=== PATIENT | male | born 1985 | race Caucasian/White ===

== ENCOUNTER 2017-03-17 19:33 | Emergency (ER) | payer SELFPAY ==
[~2017-03-17] VITALS: Ht 175.3 cm; Wt 83.3 kg
[~2017-03-17 19:33] MED LIST: HYDR-3533 PO; METH750T2 PO
[2017-03-17 19:41] VITALS: BP 118/58; PULSE 75; RESP 18; TEMP 97.9; O2SAT 98
[2017-03-17] MEDS ORDERED: CIPR500T2 PO (20:07)
[2017-03-17] MEDS ORDERED: CORTI10A LEFT EAR (20:07)
--- NOTE | 2017-03-17 20:07 | PD ---
HPI Chief Complaint: ENT Complaint Time Seen by Provider: 19:47 Travel History International Travel<30 days: No Contact w/Intl Traveler<30days: No Traveled to known affect area: No History of Present Illness HPI Is a 31-year-old male presents emergency department left ear swelling and pain for the past few days. Patient denies a history of swimming but states he's had swimmer's ear in the past from scuba diving. Denies any other upper respiratory symptoms denies any cough congestion abdominal pain nausea vomiting diarrhea and sore throat. States symptoms are gradually worsening. PFSH Past Medical History ADHD: Yes Bipolar Disorder: Yes (NO MEDICATIONS) Anxiety: Yes Depression: Yes Diminished Hearing: No Gastrointestinal Disorders: Yes (IBS) Immunizations Current: Yes Past Surgical History Abdominal Surgery: Yes (UMBICAL HERNIA REPAIR, "STOMACH BLOCKAGE WHEN I WAS A BABY") Body Medical Devices: bipolar Tonsillectomy: Yes Tympanostomy Tube: Yes (BILAT, CHILD) Other Surgery: Yes (HERNIA 2009) Social History Alcohol Use: No Tobacco Use: No Substance Use: No Allergies-Medications (Allergen,Severity, Reaction): Coded Allergies: Penicillin (Verified Allergy, Severe, Hives, 03/17/17) Phenergan (Verified Adverse Reaction, Intermediate, 'MAKES ME VIOLENT AND ANGRY', 03/17/17) pt states he becomes violent Reported Meds & Prescriptions Reported Meds & Active Scripts Active Ciprofloxacin (Ciprofloxacin HCl) 500 Mg Tab 500 Mg PO BID 7 Days Tsylxxik-Jylwlcugk-OD Otic Drops (Neomycin/Polymyxin/Hydrocortisone) 1 % Soln 4 Drop LEFT EAR QID 7 Days Review of Systems Except as stated in HPI: all other systems reviewed are Neg Physical Exam Narrative GENERAL: Well-nourished, well-developed patient. SKIN: Focused skin assessment warm/dry. HEAD: Normocephalic. EYES: No scleral icterus. No injection or drainage. ENT: Patient has some swelling at the tragus of the left ear, there is some minimal canal swelling and the outermost canal. Cerumen impaction was easily removed, TM is normal, there is some mild erythema of the left ear canal. Right TM right pinna right canal are normal. Oropharynx clear and moist. No mastoid tenderness bilaterally. NECK: Supple, trachea midline. No JVD or lymphadenopathy. CARDIOVASCULAR: Regular rate and rhythm without murmurs, gallops, or rubs. RESPIRATORY: Breath sounds equal bilaterally. No accessory muscle use. GASTROINTESTINAL: Abdomen soft, non-tender, nondistended. MUSCULOSKELETAL: No cyanosis, or edema. BACK: Nontender without obvious deformity. No CVA tenderness. Data Data Last Documented VS Vital Signs Date Time Temp Pulse Resp B/P Pulse Ox O2 Delivery O2 Flow Rate FiO2 03/17/17 19:41 97.9 75 18 118/58 98 MDM Medical Decision Making Medical Screen Exam Complete: Yes Emergency Medical Condition: Yes Differential Diagnosis Otitis externa, cellulitis, otitis media. Narrative Course Patient was roomed emergency department, signs symptoms concerning for a moderate otitis externa. Will be placed on by mouth Cipro as well as polymyxin otic. Discussed with the patient to follow up with his ear nose and throat doctor or primary care physician and discussed return to ED criteria. He stable for discharge at this time. Diagnosis Primary Impression: Otitis externa Qualified Code: H60.502 - Acute otitis externa of left ear, unspecified type Med/Other Pt SpecificInfo: Prescription(s) given Scripts Ciprofloxacin 500 Mg [id number] Mg PO BID 7 Days Ref 0 Prov:Paulino Ayala MD 03/17/17 Muvkhfpk-Sjknjrita-NK Otic Drops 1 % Soln4 Drop LEFT EAR QID 7 Days Ref 0 Prov:Paulino Ayala MD 03/17/17 Disposition: 01 DISCHARGE HOME Condition: Stable Paulino Ayala MD Mar 17, 2017 20:07
== END 2017-03-17 20:20 | disposition home or self-care (01) ==
LOC: PHEFT 19:33
DX: H60.502 Unspecified acute noninfective otitis externa, left ear (principal); H61.22 Impacted cerumen, left ear
CPT/HCPCS: 99284

== ENCOUNTER 2017-04-18 00:20 | Emergency (ER) | payer SELFPAY ==
[~2017-04-18] VITALS: Ht 175.3 cm; Wt 83.9 kg
[~2017-04-18 00:20] MED LIST changes: +CIPR500T2 PO; +CORTI10A LEFT EAR; -HYDR-3533 PO; -METH750T2 PO
[2017-04-18 00:25] VITALS: BP 127/73; PULSE 84; RESP 18; TEMP 98.1; O2SAT 98
[2017-04-18 00:30] VITALS: BP_SYST 119; BP_SYST 136; BP_DIAS 76; BP_DIAS 81; PULSE 84; RESP 18; TEMP 97.6; O2SAT 98
[2017-04-18 00:57] LABS: BASOPHIL % 0.5 % (0.0-2.0); EOSINOPHIL # 0.1 TH/MM3 (0-0.4); EOSINOPHIL % 1.2 % (0.0-4.0); HEMATOCRIT 44.2 % (39.0-51.0); HEMO FLAGS DIFF FINAL; LYMPH % 36.1 % (9.0-44.0); LYMPHOCYTE # 2.7 TH/MM3 (1.0-4.8); MEAN CELL VOLUME 84.7 FL (80.0-100.0); MEAN CORPUSCULAR HEMOGLOBIN 28.9 PG (27.0-34.0); MEAN CORPUSCULAR HGB CONC 34.2 % (32.0-36.0); MONO % 8.2 % (0.0-8.0); PLATELET COUNT 259 TH/MM3 (150-450); RED BLOOD COUNT 5.22 MIL/MM3 (4.50-5.90); RED CELL DISTRIBUTION WIDTH 11.4 % (11.6-17.2); WHITE BLOOD COUNT 7.4 TH/MM3 (4.0-11.0)
[2017-04-18 01:04] LABS: CHLORIDE 106 MEQ/L (98-107); POTASSIUM 3.6 MEQ/L (3.5-5.1); SODIUM (NA) 142 MEQ/L (136-145)
[2017-04-18 01:07] LABS: ANION GAP 7 MEQ/L (5-15); BICARBONATE 29.2 MEQ/L (21.0-32.0); BLOOD UREA NITROGEN 18 MG/DL (7-18)
[2017-04-18 01:10] LABS: GLOMERULAR FILTRATION RATE 79 ML/MIN (>89)
[2017-04-18 01:14] LABS: CREATINE KINASE 65 U/L (39-308)
--- NOTE | 2017-04-18 01:18 | RADRPT ---
EXAM DATE/TIME: 04/18/2017 00:55 [facility] COMPARISON: No previous studies available for comparison. INDICATIONS : Left lower chest pain for 24 hours MEDICAL HISTORY : None. SURGICAL HISTORY : None. ENCOUNTER: Initial ACUITY: 1 day PAIN SCORE: 8/10 LOCATION: Left lower chest FINDINGS: The cardiac silhouette is normal in transverse diameter. There is subsegmental atelectasis in the adarsh th bases. There is no evidence of pneumonia. No pleural effusions are identified. CONCLUSION: 1. Subsegmental atelectasis both bases. Maurilio Max MD on April 18, 2017 at 1:17 Board Certified Radiologist. This report was verified electronically.
[2017-04-18] MEDS ORDERED: IBUP-232 PO (01:37)
--- NOTE | 2017-04-18 01:38 | PD ---
HPI Chief Complaint: Chest Pain Time Seen by Provider: 01:12 Travel History International Travel<30 days: No Contact w/Intl Traveler<30days: No Traveled to known affect area: No History of Present Illness HPI The patient is a 31-year-old male with no known history of heart disease who complains of chest pain since 6 AM yesterday. The chest pain is sharp, pleuritic and not associated with nausea, diaphoresis, shortness of breath or radiation of pain. The patient does not smoke, have hypertension, elevated cholesterol or diabetes. His family history is that of his grandmother having heart disease in her 50s. He does not know much about his father's side of the family. He denies any direct trauma to the chest. PFSH Past Medical History ADHD: Yes Bipolar Disorder: Yes (NO MEDICATIONS) Anxiety: Yes Depression: Yes Diminished Hearing: No Gastrointestinal Disorders: Yes (IBS) Immunizations Current: Yes Tetanus Vaccination: Unknown Influenza Vaccination: No Past Surgical History Abdominal Surgery: Yes (UMBICAL HERNIA REPAIR, "STOMACH BLOCKAGE WHEN I WAS A BABY") Body Medical Devices: bipolar Tonsillectomy: Yes (T&A) Tympanostomy Tube: Yes (BILAT, CHILD) Other Surgery: Yes (UMBILICAL HERNIA 2010, PYLORIC STENOSIS) Social History Alcohol Use: Yes (Rarely) Tobacco Use: No Substance Use: No Allergies-Medications (Allergen,Severity, Reaction): Coded Allergies: Penicillin (Verified Allergy, Severe, Hives, 04/18/17) Phenergan (Verified Adverse Reaction, Intermediate, 'MAKES ME VIOLENT AND ANGRY', 04/18/17) pt states he becomes violent Reported Meds & Prescriptions Reported Meds & Active Scripts Active No Active Prescriptions or Reported Medications Review of Systems Except as stated in HPI: all other systems reviewed are Neg Physical Exam Narrative GENERAL: The patient is alert, oriented 3 in moderate apparent distress with his chest pain. He is not uncomfortable at all and has no chest pain if he does not move. His vital signs are normal. SKIN: Focused skin assessment warm/dry. No skin rash is seen. HEAD: Atraumatic. Normocephalic. EYES: Pupils equal and round. No scleral icterus. No injection or drainage. ENT: No nasal bleeding or discharge. Mucous membranes pink and moist. NECK: Trachea midline. No JVD. CARDIOVASCULAR: Regular rate and rhythm. No murmur appreciated. RESPIRATORY: No accessory muscle use. Clear to auscultation. Breath sounds equal bilaterally. I can completely reproduce the patient's pain by pressing on the rib/chest wall where the patient perceives his pain. This is on the left anterior ribs. No associated crepitus, neither bony nor air is present and there is no flail. GASTROINTESTINAL: Abdomen soft, non-tender, nondistended. Hepatic and splenic margins not palpable. MUSCULOSKELETAL: No obvious deformities. No clubbing. No cyanosis. No edema. NEUROLOGICAL: Awake and alert. No obvious cranial nerve deficits. Motor grossly within normal limits. Normal speech. PSYCHIATRIC: Appropriate mood and affect; insight and judgment normal. Data Data Last Documented VS Vital Signs Date Time Temp Pulse Resp B/P Pulse Ox O2 Delivery O2 Flow Rate FiO2 04/18/17 00:30 97.6 84 18 119/76 98 136/81 Orders Electrocardiogram (04/18/17 00:45) Complete Blood Count With Diff (04/18/17 00:45) Basic Metabolic Panel (Bmp) (04/18/17 00:45) Ckmb (Isoenzyme) Profile (04/18/17 00:45) Troponin I (04/18/17 00:45) Iv Access Insert/Monitor (04/18/17 00:45) Ecg Monitoring (04/18/17 00:45) Oxygen Administration (04/18/17 00:45) Oximetry (04/18/17 00:45) Chest, Pa & Lat (04/18/17 00:45) Labs Laboratory Tests Test 04/18/17 00:50 White Blood Count 7.4 TH/MM3 Red Blood Count 5.22 MIL/MM3 Hemoglobin 15.1 GM/DL Hematocrit 44.2 % Mean Corpuscular Volume 84.7 FL Mean Corpuscular Hemoglobin 28.9 PG Mean Corpuscular Hemoglobin 34.2 % Concent Red Cell Distribution Width 11.4 % Platelet Count 259 TH/MM3 Mean Platelet Volume 6.8 FL Neutrophils (%) (Auto) 54.0 % Lymphocytes (%) (Auto) 36.1 % Monocytes (%) (Auto) 8.2 % Eosinophils (%) (Auto) 1.2 % Basophils (%) (Auto) 0.5 % Neutrophils # (Auto) 4.0 TH/MM3 Lymphocytes # (Auto) 2.7 TH/MM3 Monocytes # (Auto) 0.6 TH/MM3 Eosinophils # (Auto) 0.1 TH/MM3 Basophils # (Auto) 0.0 TH/MM3 CBC Comment DIFF FINAL Differential Comment Sodium Level 142 MEQ/L Potassium Level 3.6 MEQ/L Chloride Level 106 MEQ/L Carbon Dioxide Level 29.2 MEQ/L Anion Gap 7 MEQ/L Blood Urea Nitrogen 18 MG/DL Creatinine 1.10 MG/DL Estimat Glomerular Filtration 79 ML/MIN Rate Random Glucose 106 MG/DL Calcium Level 9.1 MG/DL Total Creatine Kinase 65 U/L Troponin I LESS THAN 0.02 NG/ML MDM Medical Decision Making Medical Screen Exam Complete: Yes Emergency Medical Condition: Yes Medical Record Reviewed: Yes Interpretation(s) The EKG shows no acute change. The chest x-ray shows subsegmental atelectasis on both bases. The troponin I is normal. Except for a GFR of 79, the basic metabolic profile is normal. Differential Diagnosis Acute coronary syndrome, chest wall pain, atypical chest pain, esophageal pain, gastrointestinal pain, pleuritic pain, pneumonia, pulmonary embolus Narrative Course The patient has chest wall pain. Plan: He will be given Motrin 600 mg 3 times daily. Diagnosis Primary Impression: Acute chest wall pain Med/Other Pt SpecificInfo: Prescription(s) given (mot) Scripts Ibuprofen 600 Mg [id number] Mg PO TID #44 TAB Ref 0 Prov:Kamaljit Roberto MD 04/18/17 Disposition: 01 DISCHARGE HOME Condition: Stable Kamaljit Roberto MD Apr 18, 2017 01:38
[2017-04-18 01:45] VITALS: BP 136/81
[2017-04-18] MEDS ORDERED: KETOROLAC TROMETHAMINE 60 MG/2 ML (IM) VIAL IVP ONE (01:45)
--- NOTE | 2017-04-18 08:46 | EKG ---
Date Performed: 04/18/2017 Time Performed: 00:30:00 PTAGE: 31 years EKG: Sinus rhythm NONSPECIFIC T-WAVE ABNORMALITY BORDERLINE ECG PREVIOUS TRACING : 11/18/2015 01.35 Compared to prior tracing no significant change DOCTOR: José Miguel Saldana Interpretating Date/Time 04/18/2017 08:44:30
== END 2017-04-18 02:04 | disposition home or self-care (01) ==
LOC: PHED 00:20
DX: R07.89 Other chest pain (principal)
CPT/HCPCS: 71020; 80048; 82550; 84484; 85025; 93005; 96374; 99285; J1885

== ENCOUNTER 2017-11-19 10:28 | Emergency (ER) | payer OTHER ==
[~2017-11-19] VITALS: Ht 175.3 cm; Wt 90.7 kg
[~2017-11-19 10:28] MED LIST changes: -CIPR500T2 PO; -CORTI10A LEFT EAR; +IBUP-232 PO
[2017-11-19 10:32] VITALS: BP 129/74; PULSE 119; RESP 16; TEMP 100.3; O2SAT 96
--- NOTE | 2017-11-19 10:48 | PD ---
HPI Chief Complaint: Cold / Flu Symptoms Time Seen by Provider: 10:35 Travel History International Travel<30 days: No Contact w/Intl Traveler<30days: No Traveled to known affect area: No History of Present Illness HPI Patient comes to the emergency department complaining of flulike symptoms that began approximately 48 hours ago. Patient complains of cough, congestion, and fevers. Patient reports using [id number] cold and flu medication seems to help. Patient reports that he was around his father who had similar. Patient is concerned as his fiance is . Denies any nausea, vomiting, diarrhea, abdominal pain, chest pain, shortness of breath, headache, neck pain, or sore throat. PFSH Past Medical History ADHD: Yes Bipolar Disorder: Yes (NO MEDICATIONS) Anxiety: Yes Depression: Yes Diminished Hearing: No Gastrointestinal Disorders: Yes (IBS) Immunizations Current: Yes Past Surgical History Abdominal Surgery: Yes (UMBICAL HERNIA REPAIR, "STOMACH BLOCKAGE WHEN I WAS A BABY") Body Medical Devices: bipolar Tonsillectomy: Yes (T&A) Tympanostomy Tube: Yes (BILAT, CHILD) Other Surgery: Yes (UMBILICAL HERNIA 2010, PYLORIC STENOSIS) Social History Alcohol Use: Yes (Rarely) Tobacco Use: No Substance Use: No Allergies-Medications (Allergen,Severity, Reaction): Coded Allergies: penicillin G (Unverified Allergy, Severe, Hives, 11/19/17) promethazine (Unverified Adverse Reaction, Intermediate, 'MAKES ME VIOLENT AND ANGRY', 11/19/17) pt states he becomes violent Reported Meds & Prescriptions Reported Meds & Active Scripts Active Zofran Odt (Ondansetron Odt) 4 Mg Tab 4 Mg SL Q6HR PRN Tamiflu (Oseltamivir Phosphate) 75 Mg Cap 75 Mg PO BID 5 Days Review of Systems Except as stated in HPI: all other systems reviewed are Neg Physical Exam Narrative GENERAL: Well-developed, overly nourished, in no acute distress, and non-ill appearing. SKIN: Focused skin assessment warm and dry. HEAD: Atraumatic. Normocephalic. EYES: Pupils equal and round. EOMI. No scleral icterus. No injection or drainage. ENT: No nasal bleeding or discharge. Mucous membranes pink and moist. Tympanic membranes pearly mei bilaterally. Posterior pharynx nonerythematous without exudate. Uvula is midline. No tenderness to facial sinuses to palpation. NECK: Trachea midline. No cervical lymphadenopathy. Supple. No nuclear rigidity. CARDIOVASCULAR: Regular rate and rhythm. No murmur appreciated. RESPIRATORY: No accessory muscle use. No respiratory distress. Clear to auscultation. Breath sounds equal bilaterally. MUSCULOSKELETAL: No obvious deformities. No clubbing. No cyanosis. No edema. Full range of motion. NEUROLOGICAL: Awake and alert. No obvious cranial nerve deficits. Motor grossly within normal limits. Normal speech. PSYCHIATRIC: Appropriate mood and affect; insight and judgment normal. Data Data Last Documented VS Vital Signs Date Time Temp Pulse Resp B/P (MAP) Pulse Ox O2 Delivery O2 Flow Rate FiO2 11/19/17 10:32 100.3 119 16 129/74 (92) 96 Orders Orders Influenzae A/B Antigen (11/19/17 10:41) Ibuprofen (Motrin) (11/19/17 11:00) Ed Discharge Order (11/19/17 11:15) MDM Medical Decision Making Medical Screen Exam Complete: Yes Emergency Medical Condition: Yes Differential Diagnosis Influenza, URI, viral syndrome Narrative Course Patient looks great. Patients symptom complex is consistent with Influenza, or flu-like illness. The patient is tolerating fluids and is well hydrated. There is no evidence to suggest secondary infection (pneumonia, sepsis/bacteremia, etc.) at this time. I discussed with the patient, diagnosis, and plan of care and to follow up with the patients primary physician. Flu prep is positive. I discussed with the patient initiating Tamiflu and the patient agreed with plan. The patient was instructed to return if the worsens in anyway, especially if not tolerating fluids, increased pain or swelling, difficulty swallowing or breathing, or as needed. The patient agreed with plan. Patient in no obvious distress upon re-evaluation. All pertinent laboratory result(s) discussed with patient. Patient was asked if they wanted to speak to my attending, which the patient did not wish to do at this time. Any questions/ concerns in reference to patient diagnosis/condition discussed and clarified prior to patient's discharge. Reinforced sheer importance of close follow up with patient's primary physician or primary care clinic. Instructed patient to return to ED immediately, if symptoms return/worsen. Patient showed understanding of above instructions. Further instructions and recommendations were detailed in discharge paperwork. Patient ambulated without difficulty out of ED at discharge. Diagnosis Primary Impression: Influenza A Referrals: [facility] Patient Instructions: General Instructions, Influenza (ED) Additional Instructions: Follow-up with your primary care physician in 3-5 days for reevaluation. Take all medication as prescribed. Use [id number] Tylenol or ibuprofen as needed for pain or fever control. Follow instruction on packaging. Drink plenty of non-caffeinated and nonalcoholic fluids. Return to the emergency department if symptoms get worse. Med/Other Pt SpecificInfo: Prescription(s) given Scripts Ondansetron Odt (Zofran Odt) 4 Mg Tab 4 MG SL Q6HR Y for Nausea/Vomiting, #12 TAB 0 Refills Prov: Lorne May MD 11/19/17 Oseltamivir (Tamiflu) 75 Mg Cap 75 MG PO BID for Mgmt Viral Infection for 5 Days, #10 CAP 0 Refills Prov: Lorne May MD 11/19/17 Disposition: 01 DISCHARGE HOME Condition: Stable Geo Grewal Nov 19, 2017 10:48
[2017-11-19] MEDS ORDERED: IBUPROFEN 800 MG TAB PO ONE (11:00)
[2017-11-19] MEDS ORDERED: OSEL75 PO (11:15)
[2017-11-19] MEDS ORDERED: ZOFR4TAB3 SL (11:15)
== END 2017-11-19 11:39 | disposition home or self-care (01) ==
LOC: PHEFT 10:28
DX: J09.X2 Influenza due to identified novel influenza A virus with other respiratory manifestations (principal); F31.9 Bipolar disorder, unspecified; Z88.0 Allergy status to penicillin; Z88.8 Allergy status to other drugs, medicaments and biological substances
CPT/HCPCS: 87804; 99283